=== PATIENT | female | born 1995 | race Hispanic/Latino ===

== ENCOUNTER 2017-06-26 19:14 | Observation (INO) | payer OTHER ==
[~2017-06-26] VITALS: Ht 162.6 cm; Wt 115.5 kg
[~2017-06-26 19:14] MED LIST: ASCO500T8 PO; Docusate Sodium PO; FERR-74 PO; Ibuprofen PO; Oxycodone/Acetaminophen PO
[2017-06-26 19:24] VITALS: BP 121/80; PULSE 97; RESP 18; O2SAT 99
[2017-06-26 20:11] LABS: BASOPHILS % (AUTO) 0.4 % (0-3); EOSINOPHILS % (AUTO) 1.7 % (0-5); MONOCYTES % (AUTO) 7.8 % (4-12); Mean Corpuscular Hemoglobin 30.1 pg (27.0-35.0); Mean Corpuscular Volume 87.5 fL (81-100); NEUTROPHILS % (AUTO) 69.2 % (40-74); Platelet Count 220 bil/L (150-400)
--- NOTE | 2017-06-26 20:26 | DRSVH ---
PROCEDURE: X-RAY CHEST, TWO VIEWS ([id number]) INDICATIONS: chest pain TECHNIQUE: 2 views of the chest were acquired. COMPARISON: None. FINDINGS: Surgical changes and devices: None. Lungs and pleura: No pleural effusions or pneumothorax. Lungs are clear. Mediastinum: Mediastinal contours are normal. Heart size is normal. Bones and chest wall: No suspicious bony abnormalities. Soft tissues appear unremarkable. IMPRESSION: No radiographic evidence of acute cardiopulmonary pathology. Dictated by: Dilshad Meng M.D. on 06/26/2017 at 20:24 Approved by: Dilshad Meng M.D. on 06/26/2017 at 20:24
[2017-06-26] MEDS ORDERED: LORazepam 0.5 mg Tablet PO ONE (20:30)
--- NOTE | 2017-06-26 20:36 | ED.REPORT ---
HPI-Chest Pain Under 40 Date of Service Jun 26, 2017 ED Provider: Keith Cantu PA-C Nursing Notes Stated Complaint: GROIN PAIN Chief Complaint: General Complaint Nursing Notes Reviewed: Yes Allergies: Coded Allergies: Penicillins (Verified Allergy, Severe, RASH, 03/30/14) latex (Verified Allergy, Unknown, 04/11/14) Scheduled ([Docusate Sodium]) 100 MG CAPSULE 100 MG PO BID Ascorbic Acid (Vitamin C) 500 Mg Tablet 500 MG PO TIDWM Ferrous Sulfate (Feosol) 325 Mg Tablet 325 MG PO TIDWM Scheduled PRN ([Ibuprofen]) 800 MG TABLET 800 MG PO Q8 PRN PRN For Pain ([Oxycodone/Acetaminophen]) 1 TAB TABLET 1-2 TAB PO Q4 PRN PRN For Pain General Time Seen by MD: 19:35 Physical Exam Initial Vital Signs Vital Signs (First) Date Time Temp Pulse Resp B/P Pulse Ox O2 Delivery O2 Flow Rate FiO2 06/26/17 19:24 37.1 97 18 121/80 99 Room Air Interpretation & Diagnostics Lab Results Interpretation Result Diagram: 06/26/17200206/26/172002 Test 06/26/17 20:03 06/26/17 20:49 White Blood Count 7.9th/mm3 (3.8-10.1) Red Blood Count 4.15mil/mm3 (3.90-5.20) Hemoglobin 12.5g/dL (12.0-15.6) Hematocrit 36.3% (35.0-46.0) Mean Corpuscular Volume 87.5fL (81-100) Mean Corpuscular Hemoglobin 30.1pg (27.0-35.0) Mean Corpuscular Hemoglobin Concent 34.4% (32.0-37.0) Red Cell Distribution Width 12.5% (12.3-15.4) Platelet Count 220bil/L (150-400) Neutrophils (%) (Auto) 69.2% (40-74) Lymphocytes (%) (Auto) 20.5% (14-46) Monocytes (%) (Auto) 7.8% (4-12) Eosinophils (%) (Auto) 1.7% (0-5) Basophils (%) (Auto) 0.4% (0-3) D-Dimer 2.83mg/L FEU (<0.50) Sodium Level 140mEq/L (134-144) Potassium Level 4.1mEq/L (3.5-5.2) Chloride Level 104mEq/L (97-108) Carbon Dioxide Level 23mmol/L (18-29) Blood Urea Nitrogen 17mg/dL (6-20) Creatinine 0.45mg/dL (0.57-1.00) Estimat Glomerular Filtration Rate 247mL/min (>59) Glucose Level 98mg/dL (60-99) Calcium Level 9.1mg/dL (8.5-10.1) Total Bilirubin 0.2mg/dL (0.0-1.2) Aspartate Amino Transf (AST/SGOT) 11U/L (0-50) Alanine Aminotransferase (ALT/SGPT) 13U/L (0-32) Alkaline Phosphatase 102U/L (25-150) Total Protein 6.8g/dL (6.4-8.4) Albumin 4.0g/dL (3.4-5.0) Hold Hines Top Tube Received (Received) Urine Color Yellow (YELLOW) Urine Appearance Clear (CLEAR,HAZY) Urine pH 6.0 (5.0-8.0) Urine Specific [place] 1.025 (1.003-1.035) Urine Protein Negativemg/dL (NEG,TRACE) Urine Glucose (UA) Negativemg/dL (NEGATIVE) Urine Ketones Negativemg/dL (NEGATIVE) Urine Occult Blood Negative (NEGATIVE) Urine Nitrite Negative (NEGATIVE) Urine Bilirubin Negative (NEGATIVE) Urine Urobilinogen Normalmg/dL (NORMAL) Urine Leukocyte Esterase Negative (NEGATIVE) Urine RBC 0-2/hpf (0-2) Urine WBC 0-5/hpf (0-5) Urine Epithelial Cells Occasional/hpf (NONE-MOD) Urine Crystals None seen (NONE SEEN) Urine Bacteria Few/hpf (NONE-FEW) Urine Hyaline Casts None/lpf (NONE) Urine Granular Casts None seen (NONE SEEN) Urine Waxy Casts None seen (NONE SEEN) Urine Red Blood Cell Casts None seen (NONE SEEN) Urine White Blood Cell Casts None seen (NONE SEEN) Urine Mucus None seen (None Seen) Urine Trichomonas None seen (NONE SEEN) Urine Yeast None (NONE SEEN) Urinalysis Comment None Urine Culture Reflexed Not indicated ECG Interpretation ECG Interpretation: Normal sinus rhythm, regular with a rate of 88. No signs of ischemic changes Time: 20:24 Interpreted by: ED physician (Dr. Laurent) X-Ray Chest Interpretation Chest Xray Interpretation: PROCEDURE: X-RAY CHEST, TWO VIEWS ([id number]) INDICATIONS: chest pain IMPRESSION: No radiographic evidence of acute cardiopulmonary pathology. Interpretation / Wet Read by: Interpret - Radiologist Discharge & Departure Referrals: Opal Vasquez MD (PCP) Keith Cantu PA-C Jun 26, 2017 20:36
--- NOTE | 2017-06-26 21:18 | ED.REPORT ---
HPI-Chest Pain Under 40 Date of Service Jun 26, 2017 ED Provider: Rudi Laurent DO Pt is a 21 y/o female with a history of DVT who presents to the ED c/o chest pain onset today. Pt states that her symptoms started off with pelvic pain, and then she woke up today with left-sided chest pain. Additional symptoms include SOB and fatigue onset one week. She denies fever, cough, chills, abdominal pain , back pain, rash, or swelling. She also denies any recent illnesses. Nursing Notes Stated Complaint: GROIN PAIN Chief Complaint: General Complaint Nursing Notes Reviewed: Yes Allergies: Coded Allergies: Penicillins (Verified Allergy, Severe, RASH, 03/30/14) latex (Verified Allergy, Intermediate, RASH, 06/26/17) Scheduled PRN Acetaminophen/Pamabrom (Midol) 1 Each Tablet 1-2 TABLET PO Q6H PRN PRN For Pain General Time Seen by MD: 19:35 Chief Complaint Chest pain Hx Obtained From: Patient Arrived By: Walk-in Sudden in Onset?: Yes Onset Occurred: 5 - 8 hours ago Symptom Duration: Constant Quality: Painful Severity: Current: Moderate Severity: Maximum: Moderate Recent Healthcare: No recent doctor visit, No recent hospitalization Similar Sx Previous: No Risk Factors )( CAD Risk Stratification Risk factors reviewed )( PE Risk Stratification Previous DVT Risk factors reviewed Past Medical History Past Medical History DVT in right calf Pre-eclampsia during Past Surgical History Reports: Smoking History Unknown if Ever Smoker Social History Other Social History: Good social support Ambulatory Status Independent Review of Systems Constitutional: Reports: Fatigue (onset one week), Denies: Chills, Fever Respiratory: Reports: Shortness of breath, Denies: Non-productive cough, Prod cough, clear Cardiovascular: Reports: Chest pain (L-sided ) GI: Denies: Abdominal pain Musculoskeletal: Denies: Back pain Skin: Denies Rash, Denies Swelling Complete sys rev & neg: except as marked. Female: Reports: Pelvic pain Physical Exam Initial Vital Signs Vital Signs (First) Date Time Temp Pulse Resp B/P Pulse Ox O2 Delivery O2 Flow Rate FiO2 06/26/17 19:24 37.1 97 18 121/80 99 Room Air Initial VS: Reviewed Head / Eyes: Atraumatic, Normocephalic Neck: Supple, Full range of motion Abdomen / GI: Soft, Non-tender Skin: Warm, Dry, No cyanosis Neurologic: Alert, Oriented, Nonfocal Psychiatric: Mood/affect normal, Behavior normal, Normal thought content General/Constitutional: Awake, Alert Respiratory / Chest: Atraumatic, Breath sounds NL, Breath sounds = bilat, No respiratory distress Cardiovascular: Heart rate NL, Regular rhythm, Heart sounds NL, No murmurs Back: Inspection NL, Full range of motion, No CVA tenderness Lower Extremity / Pelvis / MS: Inspection NL, Full range of motion No palpable bands or cords No erythema or swelling of the lower extremities Interpretation & Diagnostics Lab Results Interpretation Result Diagram: 06/26/17200206/26/172002 Test 06/26/17 20:03 06/26/17 20:49 White Blood Count 7.9th/mm3 (3.8-10.1) Red Blood Count 4.15mil/mm3 (3.90-5.20) Hemoglobin 12.5g/dL (12.0-15.6) Hematocrit 36.3% (35.0-46.0) Mean Corpuscular Volume 87.5fL (81-100) Mean Corpuscular Hemoglobin 30.1pg (27.0-35.0) Mean Corpuscular Hemoglobin Concent 34.4% (32.0-37.0) Red Cell Distribution Width 12.5% (12.3-15.4) Platelet Count 220bil/L (150-400) Neutrophils (%) (Auto) 69.2% (40-74) Lymphocytes (%) (Auto) 20.5% (14-46) Monocytes (%) (Auto) 7.8% (4-12) Eosinophils (%) (Auto) 1.7% (0-5) Basophils (%) (Auto) 0.4% (0-3) D-Dimer 2.83mg/L FEU (<0.50) Sodium Level 140mEq/L (134-144) Potassium Level 4.1mEq/L (3.5-5.2) Chloride Level 104mEq/L (97-108) Carbon Dioxide Level 23mmol/L (18-29) Blood Urea Nitrogen 17mg/dL (6-20) Creatinine 0.45mg/dL (0.57-1.00) Estimat Glomerular Filtration Rate 247mL/min (>59) Glucose Level 98mg/dL (60-99) Calcium Level 9.1mg/dL (8.5-10.1) Total Bilirubin 0.2mg/dL (0.0-1.2) Aspartate Amino Transf (AST/SGOT) 11U/L (0-50) Alanine Aminotransferase (ALT/SGPT) 13U/L (0-32) Alkaline Phosphatase 102U/L (25-150) Total Protein 6.8g/dL (6.4-8.4) Albumin 4.0g/dL (3.4-5.0) Hold Hines Top Tube Received (Received) Urine Color Yellow (YELLOW) Urine Appearance Clear (CLEAR,HAZY) Urine pH 6.0 (5.0-8.0) Urine Specific [place] 1.025 (1.003-1.035) Urine Protein Negativemg/dL (NEG,TRACE) Urine Glucose (UA) Negativemg/dL (NEGATIVE) Urine Ketones Negativemg/dL (NEGATIVE) Urine Occult Blood Negative (NEGATIVE) Urine Nitrite Negative (NEGATIVE) Urine Bilirubin Negative (NEGATIVE) Urine Urobilinogen Normalmg/dL (NORMAL) Urine Leukocyte Esterase Negative (NEGATIVE) Urine RBC 0-2/hpf (0-2) Urine WBC 0-5/hpf (0-5) Urine Epithelial Cells Occasional/hpf (NONE-MOD) Urine Crystals None seen (NONE SEEN) Urine Bacteria Few/hpf (NONE-FEW) Urine Hyaline Casts None/lpf (NONE) Urine Granular Casts None seen (NONE SEEN) Urine Waxy Casts None seen (NONE SEEN) Urine Red Blood Cell Casts None seen (NONE SEEN) Urine White Blood Cell Casts None seen (NONE SEEN) Urine Mucus None seen (None Seen) Urine Trichomonas None seen (NONE SEEN) Urine Yeast None (NONE SEEN) Urinalysis Comment None Urine Culture Reflexed Not indicated ECG Interpretation ECG Interpretation: Sinus rhythm, rate 88 Inverted T waves in lead 3 Time: 20:24 Interpreted by: ED physician X-Ray Chest Interpretation Chest Xray Interpretation: IMPRESSION: No radiographic evidence of acute cardiopulmonary pathology. Dictated by: Dilshad Meng M.D. on 06/26/2017 at 20:24 Approved by: Dilshad Meng M.D. on 06/26/2017 at 20:24 View: AP & lat Interpretation / Wet Read by: Interpret - Radiologist CT Chest Interpretation IMPRESSION: Small subsegmental right lower lobe acute pulmonary embolus. Dictated by: Dilshad Meng M.D. on 06/26/2017 at 22:10 Approved by: Dilshad Meng M.D. on 06/26/2017 at 22:16 Study type: Chest CT w contrast Interpretation / Wet Read by: Interpret - Radiologist Re-Eval/Medical Decision Med Decision/Clinical Course 21-year-old female with a history of previous DVT treated for a period of 6 months with warfarin presents with shortness of breath and left-sided chest pain. On CT scan she is found to be positive for pulmonary embolus. I gave her Lovenox 1 mg/kg 1 and pharmacy to dose warfarin. Patient admitted for further evaluation and treatment of her condition. I discussed with hospitalist who agrees with this plan Source of Hx: Old records Re-Evaluation/Progress : Time of Eval: 22:50 Re-Evaluation/Progress Note: Discussed plan for admission. Patient understands and agrees with plan. All questions addressed at this time. Consultation : Referral / Consult Name: Em Velez DO Consulted With: Hospitalist Call Returned at: 23:12 Build Technician: Will see patient, Agrees with plan, Accepts admit Note: Discussed pt's case with hospitalist, Dr. Velez. Counseled Regarding: Diagnosis, Lab results, Need for admission Discharge & Departure Primary Impression: Pulmonary embolism Pulmonary embolism type: other Chronicity: unspecified Acute cor pulmonale presence: without acute cor pulmonale Qualified Code: I26.99 - Other pulmonary embolism without acute cor pulmonale Disposition: ADMITTED TO HOSPITAL Discharge Condition All VS Reviewed: Yes Condition: Stable Referrals: Jami Mcnally MD Scribe Attestation Portions of this note were transcribed by Roxie Juares. I, Dr. Laurent, personally performed the history, physical exam and medical decision-making; I reviewed and confirmed the accuracy of the information in the transcribed note. copies to: Jami Mcnally MD, Gary R DO Jun 26, 2017 21:18 Roxie Juares Jun 26, 2017 22:25
[2017-06-26 21:20] LABS: APPEARANCE,URINE CLEAR (CLEAR,HAZY); COLOR,URINE YELLOW (YELLOW); OCCULT BLOOD,URINE NEGATIVE (NEGATIVE); UROBILINOGEN,URINE NORMAL (NORMAL)
[2017-06-26 21:54] VITALS: BP 122/68; PULSE 83; RESP 16; O2SAT 98
--- NOTE | 2017-06-26 22:18 | DRSVH ---
PROCEDURE: CT ANGIO CHEST PULMONARY EMBOLISM ([id number]) INDICATIONS: chest pain, h/o PE TECHNIQUE: After the administration of intravenous contrast, 2 mm thick sections acquired from the pulmonary api dereck to the posterior costophrenic angles. 3-dimensional maximum intensity projection (MIP) coronal a nd sagittal reformats were then acquired through the thorax. For radiation dose reduction, the follo wing was used: automated exposure control, adjustment of mA and/or kV according to patient size. COMPARISON: None. FINDINGS: Image quality: Excellent. Pulmonary arteries: Very small acute right lower lobe pulmonary embolus (se 4 im 64-66). Lungs and pleura: Lungs are clear. No pleural effusions or pneumothorax. Central and peripheral ai rways are patent. Mediastinum: Heart size is normal, without pericardial effusion. No mediastinal or hilar adenopathy . Thoracic aorta is normal in caliber and enhancement. Esophagus is normal in caliber, without hiat al hernia. Bones and chest wall: No suspicious bony lesions. Ribs and thoracic spine appear intact throughout. Thyroid gland is grossly normal. No axillary or supraclavicular adenopathy. Abdomen: Visualized upper abdominal solid organs appear normal in the early arterial phase of enhanc ement. IMPRESSION: Small subsegmental right lower lobe acute pulmonary embolus. Dictated by: Dilshad Meng M.D. on 06/26/2017 at 22:10 Approved by: Dilshad Meng M.D. on 06/26/2017 at 22:16
[2017-06-26] MEDS ORDERED: ACET1TAB95 PO (23:33)
[2017-06-26] MEDS ORDERED: Alum-Mag Hydrox-Simeth 30 mL Suspension PO PRN (23:35)
[2017-06-26] MEDS ORDERED: Ondansetron 2 mg/mL 2 mL Inj IVPUSH PRN (23:35)
[2017-06-26] MEDS ORDERED: Polyethylene Glycol (PEG) 17 Gm Powder PO PRN (23:35)
[2017-06-27] VITALS (10 sets, daily range): BP systolic 119–127; BP diastolic 70–82; PULSE 80–100; RESP 16–20; O2SAT 95–100
--- NOTE | 2017-06-27 02:31 | NUR ---
ADMIT Patient oriented to room and call light. Denies chest pain except with inspiration. Appears to be resting comfortable at this time.
--- NOTE | 2017-06-27 04:37 | PCM.HPMED ---
Subjective Date of Service Jun 27, 2017 Primary Provider: Admitting Physician: Em Velez DO Primary Care Physician: Opal Vasquez MD Attending Physician: Em Velez DO Admit Status: From the Emergency Department Chief Complaint: Chest pain History of Present Illness: Patient is a 21-year-old female that presented to the emergency department with left-sided chest pain that started today. She admits to DVT post in February 2016. Patient reports that 2 days ago she had left-sided groin pain that has now extended up to her left shoulder. She states the pain is worse with deep breathing. She has been experiencing fatigue and shortness of breath since the chest pain started. She was previously treated for DVT post with Lovenox. She is uncertain how long ago her last dose was, but it was many months ago. Patient denies lightheadedness, nausea, vomiting, pain down her arms, sweating. Patient admits to shortness of breath and difficulty with deep breaths Review of Systems: Complete ROS was performed and pertinent positives and negatives included in the history of present illness. All other findings were negative. Allergies Coded Allergies: Penicillins (Verified Allergy, Severe, RASH, 03/30/14) latex (Verified Allergy, Intermediate, RASH, 06/26/17) Home Medications Acetaminophen/Pamabrom (Midol) 1 Each Tablet 1-2 TABLET PO Q6H PRN PRN For Pain PMH DVT in right calf Pre-eclampsia during Surgical History 2 Family History No known family history of bleeding or clotting disorders Social History Hx Alcohol Use: No Hx Substance Use: No Hx Tobacco Use: No Smoking Status: Unknown if Ever Smoker Exam Vital Signs Vital Sign - Last Date Time Temp Pulse Resp B/P Pulse Ox O2 Delivery O2 Flow Rate FiO2 06/27/17 00:55 100 06/27/17 00:44 37.1 20 121/78 98 Room Air Exam General: Nondistressed, obese female HEENT: NC/AT, PERRLA, EOM intact. Nontender sinuses, no nasal discharge. CV: Regular rate and rhythm, no murmurs, gallops, or rubs appreciated RESP: Clear to auscultation bilaterally, no wheezes or rhonchi appreciated. Shallow breathing secondary to pain, but patient is able to take full breaths ABD: Bowel sounds normal, nondistended, no tenderness to palpation EXT: No joint swelling appreciated LYMPH: No cervical lymphadenopathy NEURO: Symmetric face, cranial nerves grossly intact, strength intact bilaterally upper and lower extremities, sensation to light touch intact bilaterally upper and lower extremities. PSYCH: Oriented 4. Linear and appropriate conversation. Skin: No rashes or ecchymosis appreciated. Lab and Diagnostics Result Diagram: 06/26/17200206/26/172002 Assessment & Plan 21-year-old female presented with sudden left-sided chest pain today. Right- sided pulmonary embolism visualized on CT 1. Pulmonary embolism, present on admission and ongoing - Sudden chest pain and shortness of breath with pulmonary embolism visualized on CT. - D-dimer high at 2.83 - History of DVT -Lovenox, 1.5 mg/kg daily - Warfarin to be dosed by pharmacy -INR goal between 2 and 3 -Echo to rule out pulmonary hypertension secondary to PE, RV strain -Investigate if this was a provoked clot. Previous DVT was provoked it . This will help determine long-term management Patient is under observation status, she is expected to spend less than 2 midnights Pain Evaluation: Adequate Pain Control GI Prophylaxis: Not indicated VTE Prophylaxis Indicated: VTE on Admission Resuscitation Status: CPR: Attempt Resuscitation Attending Statement The patient was seen and examined together with house staff on 06/27/2017 and I agree with the history, exam and plan as outlined in the note above. Laverne Clark DO Jun 27, 2017 04:37 Em Velez DO Jun 27, 2017 06:36
--- NOTE | 2017-06-27 08:51 | NUR ---
Social Work-initial assessment/readiness for discharge: Data:See initial assessment. Pt i a 21 y/o female who was admitted on 06/27/17 for PE per H&P. Pt's insurance is [employer] and [facility]. EMR reviewed. OLIVIA met with pt at bedside to discuss discharge planning, SW role explained. Pt is alert and oriented x3. Pt resides at home with her parents where she remains independent with ADls. Pt does not drive and does not use any DME. Pt has no HH or SNF history. Pt has no seismology technical officer care insurance or [place] benefits. SW discussed DPOA/advanced directive, pt has not completed this information provided. No concerns noted around pt's capacity for self care per MD web support engineer. Pt has been up independent in her room. SW provided pt with discharge planning checklist and encouraged pt to call with any questions, phone number provided on white board in room. Pt's family to provide transport home at discharge. No anticipated discharge needs. SW will continue to follow if needs arise. Assessment:Pt who is independent at baseline. Plan:Pt to discharge home when medically stable via POV. No anticipated discharge needs. SW will continue to follow if needs arise. FLACO Villagran Addendum: 06/27/17 at 0855 by DARVIN ALEGRIA Amended: Links added.
[2017-06-27] MEDS: oxyCODONE-Acetamin 5-325 mg Tablet PO PRN ×3 (09:09→21:50)
--- NOTE | 2017-06-27 14:05 | NUR ---
Pain/Lovenox Pt reporting left sided upper chest and left lateral chest. Pain reported between 5-6/10 sharp pain with inspiration. PRN Percocet admin with relief. on RA no reports of SOB. Lovenox admin with no issues. Pt will most likely go home on Lovenox she has admin it before when she had previous DVT. For tomorrow's dose please educate and let pt administer dose. I will pass this on to oncoming RN this evening so they can let day shift know tomorrow morning.
--- NOTE | 2017-06-27 15:45 | PCM.PNMED ---
Subjective Date of Service Jun 27, 2017 Subjective Patient interviewed. No provoking factor identified. No prolonged bedrest. No prolonged sitting position like driving or flight. No family history of blood clots. Continues to have chest pain. Exam Vital Signs Vital Sign - Last Date Time Temp Pulse Resp B/P Pulse Ox O2 Delivery O2 Flow Rate FiO2 06/27/17 13:33 36.6 87 18 123/76 99 Room Air Intake and Output 06/26/17 06/26/17 06/27/17 Cumulative From/Thru 15:00 23:00 07:00 06/26/17 19:24 - 06/27/17 06:49 Intake Total 200 ml 200 ml Output Total 0 ml 0 ml Balance 200 ml 200 ml Intake Oral 200 ml 200 ml Output Urine Total 0 ml 0 ml Exam General: Nondistressed, obese female HEENT: NC/AT, PERRLA, EOM intact. Nontender sinuses, no nasal discharge. CV: Regular rate and rhythm, no murmurs, gallops, or rubs appreciated RESP: Clear to auscultation bilaterally, no wheezes or rhonchi appreciated. Shallow breathing secondary to pain, but patient is able to take full breaths ABD: Bowel sounds normal, nondistended, no tenderness to palpation EXT: No joint swelling appreciated LYMPH: No cervical lymphadenopathy NEURO: Symmetric face, cranial nerves grossly intact, strength intact bilaterally upper and lower extremities, sensation to light touch intact bilaterally upper and lower extremities. PSYCH: Oriented 4. Linear and appropriate conversation. Skin: No rashes or ecchymosis appreciated. IVs and Medications Medications Reviewed: Medications were reviewed in detail Lab and Diagnostics Result Diagram: 06/26/17200206/26/172002 X-Rays, CTs and MRIs PROCEDURE: CT ANGIO CHEST PULMONARY EMBOLISM ([id number]) INDICATIONS: chest pain, h/o PE TECHNIQUE: After the administration of intravenous contrast, 2 mm thick sections acquired from the pulmonary apices to the posterior costophrenic angles. 3-dimensional maximum intensity projection (MIP) coronal and sagittal reformats were then acquired through the thorax. For radiation dose reduction, the following was used: automated exposure control, adjustment of mA and/or kV according to patient size. COMPARISON: None. FINDINGS: Image quality: Excellent. Pulmonary arteries: Very small acute right lower lobe pulmonary embolus (se 4 im 64-66). Lungs and pleura: Lungs are clear. No pleural effusions or pneumothorax. Central and peripheral airways are patent. Mediastinum: Heart size is normal, without pericardial effusion. No mediastinal or hilar adenopathy. Thoracic aorta is normal in caliber and enhancement. Esophagus is normal in caliber, without hiatal hernia. Bones and chest wall: No suspicious bony lesions. Ribs and thoracic spine appear intact throughout. Thyroid gland is grossly normal. No axillary or supraclavicular adenopathy. Abdomen: Visualized upper abdominal solid organs appear normal in the early arterial phase of enhancement. IMPRESSION: Small subsegmental right lower lobe acute pulmonary embolus. Dictated by: Dilshad Meng M.D. on 06/26/2017 at 22:10 Assessment & Plan 21-year-old female presented with sudden left-sided chest pain today. Right- sided pulmonary embolism visualized on CT 1. Pulmonary embolism, present on admission and ongoing - Sudden chest pain and shortness of breath with pulmonary embolism visualized on CT. - apparently unprovoked -D-dimer high at 2.83 - History of DVT -Lovenox, 1.5 mg/kg daily - Warfarin to be dosed by pharmacy -INR goal between 2 and 3 -Echo to rule out pulmonary hypertension secondary to PE, RV strain -No provoking factor identified. Previous DVT was provoked by . -Patient may need to be on AC lifelong. possible discharge tomorrow GI Prophylaxis: Not indicated Resuscitation Status: CPR: Attempt Resuscitation Gonzalo Rudd MD Jun 27, 2017 15:45
[2017-06-27 16:43] LABS: INR 1.03 ratio
[2017-06-27] MEDS ORDERED: Warfarin 5 MG, Warfarin 2.5 MG PO SCH ×2 (17:00)
--- NOTE | 2017-06-27 18:25 | PCM.PHAPRO ---
Progress Warfarin Management by Pharmacy: -Indication: small RLL acute PE -Inr Goal: 2-3 -Home Dose: hx of warfarin in the past, none now (hx of dvt,pe) -Concurrent Anticoagulation: Enoxaparin 120mg subq q12 -H/H 12.5/36.3 (06/26), Plt 220 -Inr today: 1.03 -pt received one dose of warfarin 7.5mg last evening in ED -ordered test, negative -Plan: will continue with warfarin 7.5mg on day 2. serial inr's have been ordered Sweta Padgett [facility] Jun 27, 2017 18:25
[2017-06-28 00:25] VITALS: BP 102/58; PULSE 89; RESP 18; O2SAT 95
[2017-06-28] MEDS: oxyCODONE-Acetamin 5-325 mg Tablet PO PRN ×2 (03:48→10:39)
--- NOTE | 2017-06-28 04:54 | NUR ---
NOC/Pain on deep inspiration Pt reports of pain on her left chest from deep inspiration. Controlled with percocet prn. Denies sob, n/v or abd discomfort. HS meds and lovenox administered as scheduled. Continuing to monitor.
[2017-06-28 05:35] VITALS: BP 100/65; PULSE 78; RESP 18; O2SAT 96
[2017-06-28 06:48] LABS: BASOPHILS % (AUTO) 0.4 % (0-3); EOSINOPHILS % (AUTO) 3.2 % (0-5); MONOCYTES % (AUTO) 6.6 % (4-12); Mean Corpuscular Hemoglobin 30.1 pg (27.0-35.0); Mean Corpuscular Volume 88.3 fL (81-100); NEUTROPHILS % (AUTO) 59.2 % (40-74); Platelet Count 202 bil/L (150-400)
[2017-06-28 06:51] LABS: INR 1.32 ratio
[2017-06-28 08:00] VITALS: PULSE 104
[2017-06-28 09:40] VITALS: BP 113/76; PULSE 82; RESP 18; O2SAT 97
--- NOTE | 2017-06-28 10:34 | PCM.DIMED ---
Discharge Instructions Date of Service Jun 28, 2017 Dates of Hospitalization Jun 27, 2017 at 00:00 Discharge Diagnosis Discharge Diagnosis # Pulmonary embolism, present on admission -apparently unprovoked Diet Discharge Diet: Other (warfarin diet restriction as instructed by pharmacist ) Activity Discharge Activity: No restrictions Call your provider Call your provider for: Fever or Chills, Shortness of breath, Bleeding, Chest pain, Vomitting, Excessive diarrhea, Weakness (unilateral) Patient Instructions Patient Instructions # You were hospitalized to due to pulmonary embolism. Embolism seems to be unprovoked. Please continue Lovenox 120mg twice daily until INR is 2. Please continue warfarin 7.5 mg by mouth daily was instructed by pharmacist and discuss with pro time clinic regarding further dosing. Please check your INR at least every other day for the next 1 week. # Your lung blood clots/pulmonary embolism seems to be unprovoked/no apparent cause. If that is the case you may need to be on the blood thinners for life given you had prior pulmonary embolism. Please follow-up with primary doctor/ [facility] residency clinic.You will need to have hypercoagulable workup( tests to check if you have clotting tendency) outpatient with primary doctor. Primary doctor would make final decision how long you need to be on blood thinners. You may also need referral by PCP to infantry officer for that decision. Follow-up Provider: [facility] Residency Clinic Follow-up with PCP in: 1 week Gonzalo Rudd MD Jun 28, 2017 10:34
[2017-06-28] MEDS ORDERED: OXYC1TAB24 PO (10:49)
[2017-06-28] MEDS ORDERED: LOV120 SUBQ (10:49)
[2017-06-28] MEDS ORDERED: WARF2.5T82 PO (10:49)
--- NOTE | 2017-06-28 11:30 | DRSVH ---
[facility] [address] [address] Echocardiogram Report Name: JOHN CURIEL Study Date: 06/27/2017 Height: 64 in Hospital Exam Location: [facility] Weight: 255 lb Gender: Female BSA: 2.2 m2 : 1995 Age: 21 yrs BP: 120/74 mmHg Reason For Study: Pulmonary- Embolism Ordering Physician: HOSPITALIST [facility] Performed By: Jackie Cary Referring Physician: Marvin Figueredo Interpretation Summary The left ventricle is normal in size, wall thickness, and systolic function without any focal wall motion abnormalities with the ejection fraction visually estimated to be 55-60%. There has been no significant change since the previous study. The right ventricle is normal in size and function, and appears unchanged compared to the previous study. Pulmonary artery pressures cannot be estimated because of the lack of a measurable TR jet velocity. Both atria are normal in size and are unchanged compared to the previous study. There is no significant valvular heart disease. Procedure: A two-dimensional transthoracic echocardiogram with color flow and Doppler was performed. The study quality was technically adequate. A contrast injection of Definity was performed to improve assessment of LV function. Comparison is made with the echocardiogram of 05/26/14. The patient was in normal sinus rhythm during the exam. Left Ventricle: The left ventricle is normal in size, wall thickness, and systolic function without any focal wall motion abnormalities. The ejection fraction is estimated to be 55-60%. Assessment of diastolic parameters indicates normal left ventricular diastolic function and normal filling pressures. There has been no significant change since the previous study. Right Ventricle: The right ventricle is normal in size and function. This is unchanged compared to the previous study. Atria: Both atria are normal in size. This is unchanged compared to the previous study. There is no Doppler evidence for an interatrial shunt. Mitral Valve: The mitral valve leaflets appear borderline thickened, but open well. There is trace mitral regurgitation. This is unchanged compared to the previous study. Aortic Valve: The aortic valve is trileaflet. The aortic valve opens well. No aortic regurgitation is present. Tricuspid Valve: The tricuspid valve is normal in structure and function. There is trace tricuspid regurgitation. This is unchanged compared to the previous study. Pulmonary artery pressures cannot be estimated because of the lack of a measurable TR jet velocity. Pulmonic Valve: The pulmonic valve is not well seen, but is grossly normal. There is trace pulmonic regurgitation. This is unchanged compared to the previous study. There is no significant valvular heart disease. Great Vessels: The aortic root is normal size. The ascending aorta is normal in size. This is unchanged compared to the previous study. The pulmonary artery is normal size. The inferior vena cava was not visualized. Pericardium/ Pleura There is no pericardial effusion. There is no pleural effusion. MMode/2D Measurements & Calculations LVIDd: 5.0 cm RA long axis LVOT diam LVIDs: 3.6 cm LA A2 area: 18.0 cm FS: 27.1 % LA A4 area: 19.5 cm RA area AoV Opening EPSS: 1.2 cm LA length (vol): 5.5 cm IVSd: 0.57 cm LA vol: 54.2 ml : 13.1 cm Ao root diam LVPWd: 0.58 cm LA vol index RA vol : 29.3 ml asc Aorta : 25.0 ml/m2 RA Diam: 2.4 cm : 13.5 mm2 LV wall. diameter/BSA LV sys. diameter/BSA RVD1 (basal) TAPSE: 2.1 cm (cm/m^2): 2.3 (cm/m^2): 1.7 Doppler Measurements & Calculations Ao V2 max MV E max chang MV E/A: 1.3 PA V2 max : 155.4 cm/sec : 105.9 cm/sec Med Peak E' Chang : 86.8 cm/sec Ao max PG MV A max chang PA mean PG : 9.7 mmHg : 80.5 cm/sec E/E' med: 12.6 Ao mean PG MV P1/2t: 60.6 msec Lat Peak E' Chang PA Accel Time : 0.17 sec LVOT Max Chang E/E' lat: 14.0 : 117.8 cm/sec E/e' average: 13.3 ROSLYN(I,D): 2.5 cm sev ratio MV dec time MV P1/2t max chang Ao V2 mean LV V1 max PG : 0.21 sec : 109.0 cm/sec Ao V2 VTI: 32.0 cm LV V1 VTI MVA(P1/2t): 3.6 cm2 : 25.6 cm ROSLYN(V,D): 2.3 cm2 PA V2 mean ROSLYN indexed to BSA : 63.2 cm/sec (cm^2/m^2): 1.1 Reading Physician:12:37 PM
--- NOTE | 2017-06-28 11:50 | PCM.PHAPRO ---
Progress Warfarin Management by Pharmacy Indication: PE Home Dose: New start INR Goal: 2-3 Duration: TBD INR: 1.32 [facility] DFF Date -Jun 6-Jun 28-Jun INR 1.03 1.32 INR change 1.03 0.29 Warf Dose 7.5 7.5 7.5 Assessment/Plan -Subtherapeutic INR. Uptrending following two administered doses of warfarin -Will continue warfarin 7.5 mg today. Discharge anticipated today with follow up in 2 days. -Lovenox and warfarin education completed with handouts given to patient. Zeb Quiroz Dwaine Pharm.D. Kenny Carrington Jun 28, 2017 11:50
--- NOTE | 2017-06-28 11:55 | PCM.PHADCC ---
Subjective Clinical Pharmacist Consult: Discharge Counseling Assessment/Plan Assessment/Plan ENOXAPARIN/WARFARIN DISCHARGE EDUCATION Dx: PE -Patient was seen with mother present in room. -Course of therapy was explained with written education given to pt. -Questions were answered about duration of therapy and lab follow-up. -Pt self-injected enoxaparin dose with appropriate technique with both the RN and myself present. Kenny Carrington, PharmD Kenny Carrington Jun 28, 2017 11:55
--- NOTE | 2017-06-28 12:15 | NUR ---
POST HOSPITAL FOLLOW UP: Scheduled hospital follow up appointment at Residency clinic 07/04/17 check in at 745AM for 8AM appointment with Updated POWER LINEWORKER
--- NOTE | 2017-06-28 13:27 | NUR ---
Social Work: Discharge Data & Assessment: EMR reviewed. Patient is on day 1 of hospitalization for PE per H&P. Patient was discussed in morning rounds. Patient has been deemed medically stable for discharge today per MD. Per patient's request, a referral for PCP has been arranged. PCP appointment was originally scheduled for 07/04/17 however, due to patient needing INR checks q48 the appointment had to be changed. PCP appointment has now been scheduled for 06/29/[address] Perkins at the [facility]. Patient will need to arrive at 1415 to check-in for her 1430 appointment. Transportation home will be provided by family. Patient has no additional needs at this time. Plan: Patient is medically stable and will discharge home today. Transportation will be provided by family. PCP appointment has been confirmed for 06/29/17. Patient has confirmed understanding. Patient has no additional needs at this time. FLACO Yanez
--- NOTE | 2017-06-28 14:54 | NUR ---
Discharge Pt discharged at this time. VSS, all belongings gathered and returned to pt. No complains of increased pain, fatigue or SOB. IV D/Cd intact, tele monitor removed. Hard copy of new prescriptions given to pt to fill. Discharge packet printed and reviewed with pt. Pt declined offer of wheelchair. Pt escorted from [facility] to elevator, by this RN. steady firm gait observed. Pt to be transported home in private vehicle driven by family member
--- NOTE | 2017-06-28 15:51 | PCM.DC.MED ---
Discharge Summary Date of Service Jun 28, 2017 Dates of Hospitalization Date of Hospital Admission Jun 27, 2017 at 00:00 Date of Discharge: Jun 28, 2017 Providers: Admitting Physician: Em Velez DO Primary Care Physician: Opal Vasquez MD Attending Physician: Gonzalo Galdamez MD Diagnosis at Time of Discharge Diagnosis at Time of Discharge # Pulmonary embolism, present on admission -apparently unprovoked Procedures XRay, CTs & MRIs PROCEDURE: CT ANGIO CHEST PULMONARY EMBOLISM ([id number]) INDICATIONS: chest pain, h/o PE TECHNIQUE: After the administration of intravenous contrast, 2 mm thick sections acquired from the pulmonary apices to the posterior costophrenic angles. 3-dimensional maximum intensity projection (MIP) coronal and sagittal reformats were then acquired through the thorax. For radiation dose reduction, the following was used: automated exposure control, adjustment of mA and/or kV according to patient size. COMPARISON: None. FINDINGS: Image quality: Excellent. Pulmonary arteries: Very small acute right lower lobe pulmonary embolus (se 4 im 64-66). Lungs and pleura: Lungs are clear. No pleural effusions or pneumothorax. Central and peripheral airways are patent. Mediastinum: Heart size is normal, without pericardial effusion. No mediastinal or hilar adenopathy. Thoracic aorta is normal in caliber and enhancement. Esophagus is normal in caliber, without hiatal hernia. Bones and chest wall: No suspicious bony lesions. Ribs and thoracic spine appear intact throughout. Thyroid gland is grossly normal. No axillary or supraclavicular adenopathy. Abdomen: Visualized upper abdominal solid organs appear normal in the early arterial phase of enhancement. IMPRESSION: Small subsegmental right lower lobe acute pulmonary embolus. Dictated by: Dilshad Meng M.D. on 06/26/2017 at 22:10 Cardiac Echo Impression Interpretation Summary The left ventricle is normal in size, wall thickness, and systolic function without any focal wall motion abnormalities with the ejection fraction visually estimated to be 55-60%. There has been no significant change since the previous study. The right ventricle is normal in size and function, and appears unchanged compared to the previous study. Pulmonary artery pressures cannot be estimated because of the lack of a measurable TR jet velocity. Both atria are normal in size and are unchanged compared to the previous study. There is no significant valvular heart disease. Brief History per HPI Patient is a 21-year-old female that presented to the emergency department with left-sided chest pain that started today. She admits to DVT post in February 2016. Patient reports that 2 days ago she had left-sided groin pain that has now extended up to her left shoulder. She states the pain is worse with deep breathing. She has been experiencing fatigue and shortness of breath since the chest pain started. She was previously treated for DVT post with Lovenox. She is uncertain how long ago her last dose was, but it was many months ago. Patient denies lightheadedness, nausea, vomiting, pain down her arms, sweating. Patient admits to shortness of breath and difficulty with deep breaths Hospital Course 21-year-old female presented with sudden left-sided chest pain today. Right- sided pulmonary embolism visualized on CT 1. Pulmonary embolism, present on admission and ongoing - Sudden chest pain and shortness of breath with pulmonary embolism visualized on CT. - apparently unprovoked.No provoking factor identified. -D-dimer high at 2.83 - History of DVT in February 2016 which is provoked -Lovenox, 120mg bid - Warfarin 7.5mg daily . Every other day INR check. Follow-up with residency clinic tomorrow Sunday -INR goal between 2 and 3 -Echo to rule out pulmonary hypertension secondary to PE, RV strain unremarkable -Patient may need to be on AC lifelong. Advised to follow-up with PCP for hypercoagulable workup off anticoagulation and make a final decision. May need referral to service member for that. Hypercoagulable workup not sent prior to initiation of AC. discharge home Exam Vital Signs (Last) Date Time Temp Pulse Resp B/P Pulse Ox O2 Delivery O2 Flow Rate FiO2 06/28/17 09:40 36.6 82 18 113/76 97 Room Air Exam General: Nondistressed, obese female HEENT: NC/AT, PERRLA, EOM intact. Nontender sinuses, no nasal discharge. CV: Regular rate and rhythm, no murmurs, gallops, or rubs appreciated RESP: Clear to auscultation bilaterally, no wheezes or rhonchi appreciated. Shallow breathing secondary to pain, but patient is able to take full breaths ABD: Bowel sounds normal, nondistended, no tenderness to palpation EXT: No joint swelling appreciated LYMPH: No cervical lymphadenopathy NEURO: Symmetric face, cranial nerves grossly intact, strength intact bilaterally upper and lower extremities, sensation to light touch intact bilaterally upper and lower extremities. PSYCH: Oriented 4. Linear and appropriate conversation. Skin: No rashes or ecchymosis appreciated. Test 06/26/17 20:03 06/26/17 20:49 06/28/17 05:11 D-Dimer 2.83mg/L FEU (<0.50) HCG Beta Subunit < 0.500mIU/mL Hold Hines Top Tube Received (Received) Urine Color Yellow (YELLOW) Urine Appearance Clear (CLEAR,HAZY) Urine pH 6.0 (5.0-8.0) Urine Specific [place] 1.025 (1.003-1.035) Urine Protein Negativemg/dL (NEG,TRACE) Urine Glucose (UA) Negativemg/dL (NEGATIVE) Urine Ketones Negativemg/dL (NEGATIVE) Urine Occult Blood Negative (NEGATIVE) Urine Nitrite Negative (NEGATIVE) Urine Bilirubin Negative (NEGATIVE) Urine Urobilinogen Normalmg/dL (NORMAL) Urine Leukocyte Esterase Negative (NEGATIVE) Urine RBC 0-2/hpf (0-2) Urine WBC 0-5/hpf (0-5) Urine Epithelial Cells Occasional/hpf (NONE-MOD) Urine Crystals None seen (NONE SEEN) Urine Bacteria Few/hpf (NONE-FEW) Urine Hyaline Casts None/lpf (NONE) Urine Granular Casts None seen (NONE SEEN) Urine Waxy Casts None seen (NONE SEEN) Urine Red Blood Cell Casts None seen (NONE SEEN) Urine White Blood Cell Casts None seen (NONE SEEN) Urine Mucus None seen (None Seen) Urine Trichomonas None seen (NONE SEEN) Urine Yeast None (NONE SEEN) Urinalysis Comment None Urine Culture Reflexed Not indicated White Blood Count 5.6th/mm3 (3.8-10.1) Red Blood Count 4.12mil/mm3 (3.90-5.20) Hemoglobin 12.4g/dL (12.0-15.6) Hematocrit 36.4% (35.0-46.0) Mean Corpuscular Volume 88.3fL (81-100) Mean Corpuscular Hemoglobin 30.1pg (27.0-35.0) Mean Corpuscular Hemoglobin Concent 34.1% (32.0-37.0) Red Cell Distribution Width 12.4% (12.3-15.4) Platelet Count 202bil/L (150-400) Neutrophils (%) (Auto) 59.2% (40-74) Lymphocytes (%) (Auto) 30.1% (14-46) Monocytes (%) (Auto) 6.6% (4-12) Eosinophils (%) (Auto) 3.2% (0-5) Basophils (%) (Auto) 0.4% (0-3) Prothrombin Time 14.2sec (8.1-12.5) Prothromb Time International Ratio 1.32ratio Sodium Level 139mEq/L (134-144) Potassium Level 4.4mEq/L (3.5-5.2) Chloride Level 104mEq/L (97-108) Carbon Dioxide Level 24mmol/L (18-29) Blood Urea Nitrogen 14mg/dL (6-20) Creatinine 0.56mg/dL (0.57-1.00) Estimat Glomerular Filtration Rate 192mL/min (>59) Glucose Level 88mg/dL (60-99) Calcium Level 8.7mg/dL (8.5-10.1) Total Bilirubin 0.2mg/dL (0.0-1.2) Aspartate Amino Transf (AST/SGOT) 13U/L (0-50) Alanine Aminotransferase (ALT/SGPT) 13U/L (0-32) Alkaline Phosphatase 94U/L (25-150) Total Protein 6.1g/dL (6.4-8.4) Albumin 3.6g/dL (3.4-5.0) Discharge Medications Discharge Medications Enoxaparin (Lovenox) 120 Mg/0.8 Ml Syringe 120 MG SUBQ Q12H Prescribed by: GONZALO GALDAMEZ MD Warfarin Sodium (Warfarin Sodium) 2.5 Mg Tablet 7.5 MG PO DAILY Prescribed by: GONZALO GALDAMEZ MD As needed Acetaminophen/Pamabrom (Midol) 1 Each Tablet 1-2 TABLET PO Q6H PRN PRN For Pain (Reported) oxyCODONE-Acetaminophen 5-325 mg (oxyCODONE-Acetaminophen 5-325 mg) 1 Each Tablet 1 TAB PO Q6H PRN PRN For Pain Prescribed by: GONZALO GALDAMEZ MD Followup Plan Disposition: home Discharge Diet: Other (warfarin diet restriction as instructed by pharmacist ) Discharge Activity: No restrictions Patient Instructions # You were hospitalized to due to pulmonary embolism. Embolism seems to be unprovoked. Please continue Lovenox 120mg twice daily until INR is 2. Please continue warfarin 7.5 mg by mouth daily was instructed by pharmacist and discuss with pro time clinic regarding further dosing. Please check your INR at least every other day for the next 1 week. # Your lung blood clots/pulmonary embolism seems to be unprovoked/no apparent cause. If that is the case you may need to be on the blood thinners for life given you had prior pulmonary embolism. Please follow-up with primary doctor/ [facility] residency clinic.You will need to have hypercoagulable workup( tests to check if you have clotting tendency) outpatient with primary doctor. Primary doctor would make final decision how long you need to be on blood thinners. You may also need referral by PCP to service member for that decision. Follow-up Provider: [facility] Follow-up with PCP in: 1 week Time spent 35 minutes coordinating discharge and answering questions copies to: [facility] Gonzalo Galdamez MD Jun 28, 2017 15:51
== END 2017-06-28 15:05 | disposition home or self-care (01) ==
LOC: SED 19:14 → MPC 06-27
PROVIDERS: ADMIT Internal Medicine; ATTEND Internal Medicine
DX: I26.99 Other pulmonary embolism without acute cor pulmonale (principal); R07.89 Other chest pain; Z86.718 Personal history of other venous thrombosis and embolism; Z79.01 Long term (current) use of anticoagulants
CPT/HCPCS: 36415; 71020; 71275; 80053; 81000; 81025; 84702; 85025; 85378; 85610; 96372; 96374; 99285; C8929; J1650; J1885; J2405; Q9957; Q9967